=== PATIENT | female | born 1985 | race Two or more races ===

== ENCOUNTER 2024-05-27 17:26 | Emergency (ER) | payer OTHER ==
[2024-05-27 17:53] VITALS: BP 114/76; PULSE 92; RESP 18; TEMP 98.1; BMI 23.6
== END 2024-05-27 20:56 | disposition home or self-care (01) ==
LOC: JERFT 17:26
DX: S90.852A Superficial foreign body, left foot, initial encounter (principal); M79.672 Pain in left foot; M79.671 Pain in right foot; W45.8XXA Other foreign body or object entering through skin, initial encounter
CPT/HCPCS: 73630-TC-LT; 73630-TC-RT-FY; 84703; 99284-25